=== PATIENT | male | born 1990 | race African-American/Black ===

== ENCOUNTER 2019-01-23 23:57 | Emergency (ER) | payer OTHER ==
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
--- NOTE | 2019-01-24 00:57 | CR ---
Indication: Right ankle pain Technique: Right ankle 2 views Comparison: None Findings: Bones: Alignment is normal. No fractures or bone lesions. Joint spaces: Joint spaces are well maintained. No degenerative changes. Soft tissues: Unremarkable. Impression: No findings to explain pain. Dictated by Giuliano Juarez MD @ Jan 24 2019 12:54AM Signed by Dr. Giuliano Juarez @ Jan 24 2019 12:55AM
--- NOTE | 2019-01-24 00:59 | CR ---
Indication: Bilateral ankle and foot pain Technique: Four views Comparison: None Findings/Impression: Views of the bilateral feet show no evidence of fracture or dislocation. Bony mineralization is within normal limits. The joint spaces are normally preserved. Soft tissues unremarkable. Dictated by Giuliano Juarez MD @ Jan 24 2019 12:54AM Signed by Dr. Giuliano Juarez @ Jan 24 2019 12:58AM
== END 2019-01-24 01:10 | disposition home or self-care (01) ==
LOC: MW.ED 23:57
DX: S99.912A Unspecified injury of left ankle, initial encounter (principal); S99.911A Unspecified injury of right ankle, initial encounter; S99.922A Unspecified injury of left foot, initial encounter; S99.921A Unspecified injury of right foot, initial encounter; V89.2XXA Person injured in unspecified motor-vehicle accident, traffic, initial encounter
CPT/HCPCS: 73600-26-LT; 73600-26-RT; 73600-LT; 73600-RT; 736202650; 73620-50; 99283; 99283-25

== ENCOUNTER 2021-07-08 18:07 | Emergency (ER) | payer SELFPAY ==
--- NOTE | 2021-07-08 19:26 | EDM.PDOC ---
ED HPI GENERAL MEDICAL PROBLEM - General Chief Complaint: Lower Extremity Injury/Pain Stated Complaint: RIGHT SIDE THIGH PAIN Time Seen by Provider: 07/08/21 19:07 Source of Information: Reports: Patient History Limitations: Reports: No Limitations - History of Present Illness INITIAL COMMENTS - FREE TEXT/NARRATIVE: Patient is a 31-year-old male presents today for right groin pain. Patient was working out and felt he pulled some in his groin. He became concerned he also felt some pressure in his groin area as well. He also mentions been having a difficult time getting an erection for the past few months. Patient easily wakes up he does have an erection the morning but when he does have sex he is difficult to obtain 1. He denies any urinary symptoms no penile discharge. Patient denies any possibility of any STDs he is on the sexually active 1 partner. Denies any fever chills nausea vomiting complaints. right groin Pain Score (Numeric/FACES): 3 - Related Data Allergies Allergy/AdvReac Type Severity Reaction Status Date / Time No Known Allergies Allergy Verified 07/08/21 18:24 Home Meds: Home Meds . [No Known Home Meds] 01/24/19 [History] Past Medical History - Past Health History Medical/Surgical History: Denies Medical/Surgical History HEENT History: Reports: None Cardiovascular History: Reports: None Respiratory History: Reports: None Gastrointestinal History: Reports: None Genitourinary History: Reports: None Musculoskeletal History: Reports: None Neurological History: Reports: None Psychiatric History: Reports: None Endocrine/Metabolic History: Reports: None Hematologic History: Reports: None Immunologic History: Reports: None Oncologic (Cancer) History: Reports: None Dermatologic History: Reports: None - Infectious Disease History Infectious Disease History: Reports: None - Past Surgical History Head Surgeries/Procedures: Reports: None Social & Family History - Family History Family Medical History: No Pertinent Family History - Tobacco Use Tobacco Use Status *Q: Never Tobacco User - Caffeine Use Caffeine Use: Reports: Energy Drinks - Recreational Drug Use Recreational Drug Use: Yes Drug Use in Last 12 Months: Yes Recreational Drug Type: Reports: Marijuana/Hashish Recreational Drug Use Frequency: Socially Review of Systems - Review of Systems Review Of Systems: See Below Constitutional: Reports: No Symptoms Eyes: Reports: No Symptoms Ears: Reports: No Symptoms Nose: Reports: No Symptoms Mouth/Throat: Reports: No Symptoms Respiratory: Reports: No Symptoms Cardiovascular: Reports: No Symptoms GI/Abdominal: Reports: No Symptoms Genitourinary: Reports: No Symptoms Musculoskeletal: Reports: Muscle Pain Skin: Reports: No Symptoms Neurological: Reports: No Symptoms Psychiatric: Reports: No Symptoms ED EXAM, GENERAL - Physical Exam Exam: See Below Exam Limited By: No Limitations General Appearance: Alert, WD/WN, No Apparent Distress Eye Exam: Bilateral Eye: EOMI Ears: Normal External Exam Head: Atraumatic Neck: Normal Inspection Respiratory/Chest: No Respiratory Distress, Lungs Clear, Normal Breath Sounds Cardiovascular: Normal Peripheral Pulses, Regular Rate, Rhythm GI/Abdominal: Normal Bowel Sounds, Soft, Non-Tender Extremities: Normal Inspection, Normal Range of Motion, Non-Tender Neurological: Alert, Oriented Course - Vital Signs Last Recorded V/S: Last Vital Signs Temp 97.3 F 07/08/21 18:21 Pulse 62 07/08/21 18:21 Resp 18 07/08/21 18:21 BP 115/58 L 07/08/21 18:21 Pulse Ox 99 07/08/21 18:21 - Orders/Labs/Meds Labs: Laboratory Tests 07/08/21 07/08/21 07/08/21 Range/Units 19:26 19:35 19:35 WBC 7.01 (4.0-11.0) K/uL RBC 4.31 L (4.50-5.90) M/uL Hgb 13.5 (13.0-17.0) g/dL Hct 39.6 (38.0-50.0) % MCV 91.9 (80.0-98.0) fL MCH 31.3 (27.0-32.0) pg MCHC 34.1 (31.0-37.0) g/dL RDW Std Deviation 44.5 (28.0-62.0) fl RDW Coeff of [place] 13 (11.0-15.0) % Plt Count 227 (150-400) K/uL MPV 8.90 (7.40-12.00) fL Neut % (Auto) 67.1 (48.0-80.0) % Lymph % (Auto) 24.3 (16.0-40.0) % [place] % (Auto) 7.0 (0.0-15.0) % Eos % (Auto) 1.3 (0.0-7.0) % Baso % (Auto) 0.3 (0.0-1.5) % Neut # (Auto) 4.7 (1.4-5.7) K/uL Lymph # (Auto) 1.7 (0.6-2.4) K/uL [place] # (Auto) 0.5 (0.0-0.8) K/uL Eos # (Auto) 0.1 (0.0-0.7) K/uL Baso # (Auto) 0.0 (0.0-0.1) K/uL Nucleated RBC % 0.0 /100WBC Nucleated RBCs # 0 K/uL Sodium 142 (136-148) mmol/L Potassium 4.3 (3.5-5.1) mmol/L Chloride 103 (98-107) mmol/L Carbon Dioxide 29.6 (21.0-32.0) mmol/L BUN 13 (7.0-18.0) mg/dL Creatinine 1.2 (0.8-1.3) mg/dL Est Cr Clr Drug Dosing 97.00 mL/min Estimated GFR (MDRD) > 60.0 ml/min Glucose 98 (74-106) mg/dL Calcium 9.0 (8.5-10.1) mg/dL Total Bilirubin 0.4 (0.2-1.0) mg/dL AST 120 H (15-37) IU/L ALT 76 H (14-63) IU/L Alkaline Phosphatase 52 (46-116) U/L Troponin I < 0.050 (0.000-0.056) ng/mL Total Protein 7.3 (6.4-8.2) g/dL Albumin 4.3 (3.4-5.0) g/dL Globulin 3.0 (2.6-4.0) g/dL Albumin/Globulin Ratio 1.4 (0.9-1.6) Urine Color YELLOW Urine Appearance CLEAR Urine pH 7.0 (5.0-8.0) Ur Specific [place] 1.025 (1.001-1.035) Urine Protein NEGATIVE (NEGATIVE) mg/dL Urine Glucose (UA) NEGATIVE (NEGATIVE) mg/dL Urine Ketones NEGATIVE (NEGATIVE) mg/dL Urine Occult Blood NEGATIVE (NEGATIVE) Urine Nitrite NEGATIVE (NEGATIVE) Urine Bilirubin NEGATIVE (NEGATIVE) Urine Urobilinogen 1.0 (<2.0) EU/dL Ur Leukocyte Esterase NEGATIVE (NEGATIVE) - Re-Assessments/Exams Free Text/Narrative Re-Assessment/Exam: 07/08/21 20:19 Patient UA and labs reviewed. Patient has slight elevation of LFTs but no abdominal tenderness or pain. Patient will be referred to follow-up with PMD. Departure - Departure Time of Disposition: 20:19 Disposition: Home, Self-Care 01 Condition: Good Clinical Impression: Groin pain, Erectile dysfunction - Discharge Information *PRESCRIPTION DRUG MONITORING PROGRAM REVIEWED*: Not Applicable *COPY OF PRESCRIPTION DRUG MONITORING REPORT IN PATIENT FABRIZIO: Not Applicable Instructions: Erectile Dysfunction Referrals: PCP,None [Primary Care Provider] - Forms: ED Department Discharge Additional Instructions: The following information is given to patients seen in the emergency department who are being discharged to home. This information is to outline your options for follow-up care. We provide all patients seen in our emergency department with a follow-up referral. The need for follow-up, as well as the timing and circumstances, are variable depending upon the specifics of your emergency department visit. If you don't have a primary care physician on staff, we will provide you with a referral. We always advise you to contact your personal physician following an emergency department visit to inform them of the circumstance of the visit and for follow-up with them and/or the need for any referrals to a consulting specialist. The emergency department will also refer you to a specialist when appropriate. This referral assures that you have the opportunity for follow-up care with a specialist. All of these measure are taken in an effort to provide you with optimal care, which includes your follow-up. Under all circumstances we always encourage you to contact your private physician who remains a resource for coordinating your care. When calling for follow-up care, please make the office aware that this follow-up is from your recent emergency room visit. If for any reason you are refused follow-up, please contact the [facility] Emergency Department at and asked to speak to the emergency department charge nurse. Please follow up with your primary care physician. If you do not have a primary care physician, see below: [facility] Primary Care [facility] [place] [address] [id number] [place] [address] He was seen today for groin pain and he also has some concerns about having trouble getting an erection. We did labs and check the urine within normal range he did have a slight elevation of your liver enzymes which could be due to if you had any recent Tylenol use or drink alcohol. We want you to follow-up with her primary care physician for more work-up. Above her numbers you can call to follow-up if you have any questions. Sepsis Event Note (ED) - Evaluation Sepsis Screening Result: No Definite Risk - Focused Exam Vital Signs: Vital Signs Temp Pulse Resp BP Pulse Ox 07/08/21 18:21 97.3 F 62 18 115/58 L 99 - Assessment/Plan Plan: Patient is a 31-year-old male presents today for groin pain. Patient was working out and may have pulled a muscle. Patient has no direct injuries to the area. He also mentions he is having some difficult time obtaining erection. Denies any trauma to the area as well but does have morning erection. Will obtain a UA reassess patient.
[2021-07-08 20:10] LABS: BLOOD UREA NITROGEN,BUN 13 mg/dL (7.0-18.0); CARBON DIOXIDE,CO2 29.6 mmol/L (21.0-32.0); CHLORIDE,CL 103 mmol/L (98-107); GLUCOSE RANDOM 98 mg/dL (74-106); POTASSIUM,K 4.3 mmol/L (3.5-5.1); SODIUM,NA 142 mmol/L (136-148)
== END 2021-07-08 20:27 | disposition home or self-care (01) ==
LOC: MW.ED 18:07
DX: N52.9 Male erectile dysfunction, unspecified (principal); R10.31 Right lower quadrant pain
CPT/HCPCS: 36415; 80053; 81003; 84484; 85025; 99283

== ENCOUNTER 2024-04-28 22:56 | Emergency (ER) | payer SELFPAY ==
[2024-04-29] MEDS: Moxifloxacin 0.5% Ophth Soln 3 ML Bottle EYERT ONE (00:03)
[2024-04-29] MEDS: Gentamicin 0.3% Ophth Soln 5 ML Bottle EYERT ONE (00:05)
[2024-04-29] MEDS ORDERED: Ciprofloxacin 0.3% Ophth Soln 2.5 ML Bottle EYEBOTH ONE (00:05)
[2024-04-29] MEDS ORDERED: Gentamicin 0.3% Ophth Soln 5 ML Bottle EYEBOTH ONE (00:05)
[2024-04-29] MEDS: Ciprofloxacin 0.3% Ophth Soln 2.5 ML Bottle EYERT ONE (00:05)
== END 2024-04-29 00:24 | disposition home or self-care (01) ==
LOC: MW.ED 22:56
DX: H16.001 Unspecified corneal ulcer, right eye (principal); Z75.8 Other problems related to medical facilities and other health care
CPT/HCPCS: 99283; A9270